=== PATIENT | female | born 1935 | race African-American/Black ===

== ENCOUNTER 2019-10-04 13:01 | Observation (INO) ==
[2019-10-04] MEDS ORDERED: ONDANSETRON 4 MG/2 ML VIAL IV STA (13:19)
[2019-10-04] MEDS ORDERED: ASPIRIN 325 MG TABLET PO STA (13:19)
[2019-10-04] MEDS ORDERED: ENOXAPARIN 100 MG/ML SYRINGE SUBCUT STA (13:19)
[2019-10-04] MEDS ORDERED: METOPROLOL TARTRATE 5 MG/5 ML VIAL IV STA ×2 (13:19→15:30)
[2019-10-04] MEDS ORDERED: MORPHINE 4 MG/1 ML VIAL IV STA ×2 (13:19→14:27)
[2019-10-04] MEDS ORDERED: NITROGLYCERIN 2% OINT 1 INCH/GM PACK TOP STA (13:19)
[2019-10-04 13:42] LABS: Basophils # 0.1 10*3/uL (0.0-0.2); Eosinophils # 0.3 10*3/uL (0.0-0.87); Eosinophils % 3.6 % (0.00-10.9); Hematocrit 34.8 VOL% (35.7-47.0); Hemoglobin 10.7 GM/DL (12.0-16.0); Immature Granulocytes % 0.9 %; Immature Granulocytes Absolute 0.08 #; Lymphocytes # 3.7 10*3/uL (1.4-4.0); Lymphocytes % 41.3 % (21.3-54.2); Mean Corpuscular HGB Conc 30.7 GM/DL (32-36); Mean Corpuscular Volume 89.2 FL (87-102); Mean Platelet Volume 10.6 FL (9.6-12.0); Monocytes % 5.6 % (1.7-12.7); Neutrophils % 47.6 % (38.7-73.9); Platelet Count 211 T/CUMM (130-400); Red Cell Distribution Width 17.1 % (9.3-17.3); White Blood Count 8.9 T/CUMM (4-12)
[2019-10-04 13:57] LABS: Alanine Aminotransferase 13 U/L (13-56); Albumin 2.9 G/DL (3.4-5.0); Alkaline Phosphatase 96 U/L (45-117); Aspartate Amino Transferase 15 U/L (0-37); Bilirubin,Total < 0.39 MG/DL (0.2-1.0); Blood Urea Nitrogen 22 MG/DL (7-18); Calcium 9.1 MG/DL (8.5-10.1); Estimated Glom Filtration Rate 47 ML/MIN; Glucose 70 MG/DL (74-106); Osmolality,Calculated 292.4 MOS/KG (273-304); Total Protein 7.3 G/DL (6.4-8.3)
[2019-10-04 14:01] LABS: INR 1.1; PT Patient Result 11.4 SECS (9.8-11.9)
[2019-10-04] MEDS ORDERED: ALUM/MAG/SIMETH/LIDO VISC 1:1 30 ML BOTTLE PO STA (15:42)
[2019-10-04] MEDS ORDERED: DEXTROSE 50% 25 GM/50 ML VIAL IV PRN (15:50)
[2019-10-04] MEDS ORDERED: LACTULOSE 20 GM/30 ML UDCUP PO PRN (15:50)
[2019-10-04] MEDS ORDERED: ACETAMINOPHEN 325 MG TABLET PO PRN (15:50)
[2019-10-04] MEDS ORDERED: CALCIUM CARBONATE CHEW 500 MG TABLET PO PRN (15:50)
[2019-10-04] MEDS ORDERED: GLUCAGON 1 MG VIAL IM PRN (15:50)
[2019-10-04] MEDS ORDERED: DOCUSATE SODIUM 100 MG CAPSULE PO PRN (15:50)
[2019-10-04] MEDS ORDERED: MORPHINE 4 MG/1 ML VIAL IV PRN (15:50)
[2019-10-04] MEDS ORDERED: ONDANSETRON 4 MG/2 ML VIAL IV PRN (15:50)
[2019-10-04] MEDS ORDERED: ALUM/MAG/SIMETH/LIDO VISC 1:1 30 ML BOTTLE PO PRN (15:59)
[2019-10-04] MEDS: INSULIN LISPRO 100 UNIT/ML SUBCUT SCH ×2 (20:37→20:38)
[2019-10-04] MEDS: ENOXAPARIN 40 MG/0.4 ML SYRINGE SUBCUT SCH (20:37)
[2019-10-04] MEDS: carvediloL 6.25 MG TABLET PO SCH (20:37)
[2019-10-04] MEDS: SODIUM CHLORIDE 0.9% 1,000 ML IV SCH (22:18)
[2019-10-05 05:31] LABS: Basophils # 0.1 10*3/uL (0.0-0.2); Eosinophils # 0.3 10*3/uL (0.0-0.87); Eosinophils % 4.5 % (0.00-10.9); Hematocrit 31.9 VOL% (35.7-47.0); Hemoglobin 9.7 GM/DL (12.0-16.0); Immature Granulocytes % 0.1 %; Immature Granulocytes Absolute 0.01 #; Lymphocytes # 2.9 10*3/uL (1.4-4.0); Lymphocytes % 41.8 % (21.3-54.2); Mean Corpuscular HGB Conc 30.4 GM/DL (32-36); Mean Corpuscular Volume 89.9 FL (87-102); Mean Platelet Volume 11.4 FL (9.6-12.0); Monocytes % 6.1 % (1.7-12.7); Neutrophils % 46.5 % (38.7-73.9); Platelet Count 184 T/CUMM (130-400); Red Blood Count 3.55 MC/CUMM (3.8-5.5); Red Cell Distribution Width 16.9 % (9.3-17.3); White Blood Count 6.9 T/CUMM (4-12)
[2019-10-05 06:08] LABS: Albumin 2.5 G/DL (3.4-5.0); Bilirubin,Total 0.4 MG/DL (0.2-1.0); Calcium 8.5 MG/DL (8.5-10.1); Osmolality,Calculated 293.4 MOS/KG (273-304); Risk Ratio 2.1; Thyroid Stimulating Hormone 0.229 uIU/ml (0.358-3.74); Total Protein 6.2 G/DL (6.4-8.3)
[2019-10-05] MEDS: INSULIN LISPRO 100 UNIT/ML SUBCUT SCH ×4 (08:21→20:51)
[2019-10-05] MEDS: SODIUM CHLORIDE 0.9% 1,000 ML IV SCH (08:28)
[2019-10-05] MEDS ORDERED: FUROSEMIDE 20 MG TABLET PO SCH (09:00)
[2019-10-05] MEDS: ROSUVASTATIN 20 MG TABLET PO SCH (09:00)
[2019-10-05 09:16] LABS: Free T4 (Free Thyroxine) 1.14 NG/DL (0.76-1.46)
[2019-10-05] MEDS: carvediloL 6.25 MG TABLET PO SCH ×2 (09:17→19:20)
[2019-10-05] MEDS: CYANOCOBALAMIN 500 MCG TABLET PO SCH (09:19)
[2019-10-05] MEDS: PANTOPRAZOLE 40 MG TABLET PO SCH (09:27)
[2019-10-05] MEDS: ISOSORBIDE MONONITRATE 30 MG TABLET PO SCH (09:27)
[2019-10-05] MEDS: CALCIUM (CITRATE)/VITAMIN D 200 MG-125 UNIT TABLET PO SCH (09:27)
[2019-10-05] MEDS: ASPIRIN EC 81 MG TABLET PO SCH (09:27)
[2019-10-05] MEDS: hydrALAZINE 20 MG/1 ML VIAL IV PRN ×2 (12:05→21:04)
[2019-10-05] MEDS: DEXTROSE 5% NACL 0.45% 1,000 ML IV SCH (12:11)
[2019-10-05] MEDS: OLMESARTAN 20 MG TABLET PO SCH (16:37)
[2019-10-05] MEDS: amLODIPine 10 MG TABLET PO SCH (16:37)
[2019-10-05] MEDS: ENOXAPARIN 40 MG/0.4 ML SYRINGE SUBCUT SCH (20:14)
[2019-10-06 05:50] LABS: Basophils # 0.1 10*3/uL (0.0-0.2); Basophils % 0.9 % (0.0-0.8); Eosinophils # 0.3 10*3/uL (0.0-0.87); Eosinophils % 4.2 % (0.00-10.9); Hematocrit 33.4 VOL% (35.7-47.0); Hemoglobin 10.2 GM/DL (12.0-16.0); Immature Granulocytes % 0.3 %; Immature Granulocytes Absolute 0.02 #; Lymphocytes # 3.1 10*3/uL (1.4-4.0); Lymphocytes % 39.2 % (21.3-54.2); Mean Corpuscular HGB Conc 30.5 GM/DL (32-36); Mean Corpuscular Volume 89.8 FL (87-102); Mean Platelet Volume 11.5 FL (9.6-12.0); Monocytes % 5.7 % (1.7-12.7); Neutrophils % 49.7 % (38.7-73.9); Platelet Count 214 T/CUMM (130-400); Red Blood Count 3.72 MC/CUMM (3.8-5.5); Red Cell Distribution Width 16.6 % (9.3-17.3); White Blood Count 7.9 T/CUMM (4-12)
[2019-10-06] MEDS: DEXTROSE 5% NACL 0.45% 1,000 ML IV SCH ×2 (05:50→19:28)
[2019-10-06 06:21] LABS: Alanine Aminotransferase 12 U/L (13-56); Albumin 2.7 G/DL (3.4-5.0); Alkaline Phosphatase 93 U/L (45-117); Aspartate Amino Transferase 10 U/L (0-37); Bilirubin,Total < 0.39 MG/DL (0.2-1.0); Blood Urea Nitrogen 23 MG/DL (7-18); Calcium 8.9 MG/DL (8.5-10.1); Estimated Glom Filtration Rate 44 ML/MIN; Glucose 128 MG/DL (74-106); Osmolality,Calculated 288.1 MOS/KG (273-304); Total Protein 6.8 G/DL (6.4-8.3)
[2019-10-06] MEDS: ROSUVASTATIN 20 MG TABLET PO SCH (10:12)
[2019-10-06] MEDS: CYANOCOBALAMIN 500 MCG TABLET PO SCH (10:12)
[2019-10-06] MEDS: ASPIRIN EC 81 MG TABLET PO SCH (10:12)
[2019-10-06] MEDS: PANTOPRAZOLE 40 MG TABLET PO SCH (10:13)
[2019-10-06] MEDS: CALCIUM (CITRATE)/VITAMIN D 200 MG-125 UNIT TABLET PO SCH (10:13)
[2019-10-06] MEDS: amLODIPine 10 MG TABLET PO SCH (10:13)
[2019-10-06] MEDS: carvediloL 6.25 MG TABLET PO SCH ×2 (10:13→18:12)
[2019-10-06] MEDS: OLMESARTAN 20 MG TABLET PO SCH (10:13)
[2019-10-06] MEDS: ISOSORBIDE MONONITRATE 30 MG TABLET PO SCH (10:13)
[2019-10-06] MEDS: INSULIN LISPRO 100 UNIT/ML SUBCUT SCH ×4 (10:14→20:30)
[2019-10-06] MEDS ORDERED: PANTOPRAZOLE 40 MG TABLET PO SCH (13:44)
[2019-10-06] MEDS: ENOXAPARIN 40 MG/0.4 ML SYRINGE SUBCUT SCH (20:28)
[2019-10-06] MEDS: GABAPENTIN 100 MG CAPSULE PO SCH (22:18)
[2019-10-07 05:39] LABS: Basophils # 0.1 10*3/uL (0.0-0.2); Basophils % 0.7 % (0.0-0.8); Eosinophils # 0.3 10*3/uL (0.0-0.87); Eosinophils % 4.9 % (0.00-10.9); Hematocrit 31.2 VOL% (35.7-47.0); Hemoglobin 9.5 GM/DL (12.0-16.0); Immature Granulocytes % 0.1 %; Immature Granulocytes Absolute 0.01 #; Lymphocytes # 2.9 10*3/uL (1.4-4.0); Lymphocytes % 41.8 % (21.3-54.2); Mean Corpuscular HGB Conc 30.4 GM/DL (32-36); Mean Corpuscular Volume 88.9 FL (87-102); Mean Platelet Volume 11.1 FL (9.6-12.0); Monocytes % 6.8 % (1.7-12.7); Neutrophils % 45.7 % (38.7-73.9); Platelet Count 190 T/CUMM (130-400); Red Blood Count 3.51 MC/CUMM (3.8-5.5); Red Cell Distribution Width 16.4 % (9.3-17.3)
[2019-10-07 07:12] LABS: Albumin 2.4 G/DL (3.4-5.0); Bilirubin,Total 0.8 MG/DL (0.2-1.0); Calcium 8.4 MG/DL (8.5-10.1); Osmolality,Calculated 288.4 MOS/KG (273-304); Total Protein 6.4 G/DL (6.4-8.3)
[2019-10-07] MEDS: DEXTROSE 5% NACL 0.45% 1,000 ML IV SCH (07:26)
[2019-10-07] MEDS: INSULIN LISPRO 100 UNIT/ML SUBCUT SCH ×2 (09:03→13:13)
[2019-10-07] MEDS: ASPIRIN EC 81 MG TABLET PO SCH (09:04)
[2019-10-07] MEDS: ISOSORBIDE MONONITRATE 30 MG TABLET PO SCH (09:05)
[2019-10-07] MEDS: GABAPENTIN 100 MG CAPSULE PO SCH (09:05)
[2019-10-07] MEDS: carvediloL 6.25 MG TABLET PO SCH (09:05)
[2019-10-07] MEDS: CYANOCOBALAMIN 500 MCG TABLET PO SCH (09:05)
[2019-10-07] MEDS: amLODIPine 10 MG TABLET PO SCH (09:05)
[2019-10-07] MEDS: ROSUVASTATIN 20 MG TABLET PO SCH (09:05)
[2019-10-07] MEDS: OLMESARTAN 20 MG TABLET PO SCH (09:06)
[2019-10-07] MEDS: CALCIUM (CITRATE)/VITAMIN D 200 MG-125 UNIT TABLET PO SCH (09:06)
[2019-10-07 13:20] VITALS: BP 155/63
[2019-10-08] MEDS ORDERED: ERGOCALCIFEROL 50,000 UNIT CAPSULE PO SCH (09:00)
== END 2019-10-07 13:35 | disposition home or self-care (01) ==
LOC: N.EDINP 13:01 → N.ED 13:01 → N.TELES 16:45
PROVIDERS: ADMIT Internal Medicine; ATTEND Internal Medicine

== ENCOUNTER 2020-06-17 08:15 | Observation (INO) ==
[2020-06-17 09:10] LABS: Bilirubin,Urine Negative (Negative); Blood, Urine Negative (Negative); Glucose,Urine (UA) Negative (Negative); Ketones,Urine Negative (Negative); Nitrite,Urine Negative (Negative); Protein,Urine 100 MG/DL; RBC,Urine 3 /HPF (0-4); Squamous Epithelial Cell,Urine Occasional /HPF (0-10); Urine Appearance CLEAR (Clear); Urine Color Colorless (Yellow); Urine Specific Gravity 1.006 (1.001-1.035); Urine Urobilinogen < 2.0 EU/DL (0.2-1.0)
[2020-06-17] MEDS ORDERED: SODIUM CHLORIDE 0.9% 500 ML IV STA (09:17)
[2020-06-17] MEDS ORDERED: ONDANSETRON 4 MG/2 ML VIAL IV STA (09:17)
[2020-06-17 09:24] LABS: Basophils # 0.1 10*3/uL (0.0-0.2); Basophils % 0.7 % (0.0-0.8); Eosinophils # 0.2 10*3/uL (0.0-0.87); Eosinophils % 3.3 % (0.00-10.9); Hemoglobin 11.4 GM/DL (12.0-16.0); Immature Granulocytes % 0.3 %; Immature Granulocytes Absolute 0.02 #; Lymphocytes # 2.5 10*3/uL (1.4-4.0); Lymphocytes % 34.1 % (21.3-54.2); Mean Corpuscular HGB Conc 30.8 GM/DL (32-36); Mean Corpuscular Volume 88.5 FL (87-102); Mean Platelet Volume 11.1 FL (9.6-12.0); Monocytes % 3.9 % (1.7-12.7); Neutrophils % 57.7 % (38.7-73.9); Platelet Count 226 T/CUMM (130-400); Red Blood Count 4.18 MC/CUMM (3.8-5.5); Red Cell Distribution Width 16.9 % (9.3-17.3); White Blood Count 7.2 T/CUMM (4-12)
[2020-06-17 09:45] LABS: Albumin 3.3 G/DL (3.4-5.0); Bilirubin,Total 0.4 MG/DL (0.2-1.0); Calcium 9.2 MG/DL (8.5-10.1); Osmolality,Calculated 280.3 MOS/KG (273-304); Potassium 4.1 MMOL/L (3.5-5.1); Total Protein 7.2 G/DL (6.4-8.2)
[2020-06-17] MEDS ORDERED: DEXTROSE 50% 25 GM/50 ML VIAL IV PRN (11:37)
[2020-06-17] MEDS ORDERED: DOCUSATE SODIUM 100 MG CAPSULE PO PRN (11:37)
[2020-06-17] MEDS ORDERED: GLUCAGON 1 MG VIAL IM PRN (11:37)
[2020-06-17] MEDS ORDERED: ACETAMINOPHEN 325 MG TABLET PO PRN (11:37)
[2020-06-17] MEDS ORDERED: hydrALAZINE 20 MG/1 ML VIAL IV PRN (14:06)
[2020-06-17] MEDS: PANTOPRAZOLE 40 MG TABLET PO SCH ×2 (14:15→21:01)
[2020-06-17] MEDS: SODIUM CHLORIDE 0.9% 1,000 ML IV SCH (14:15)
[2020-06-17] MEDS: ENOXAPARIN 40 MG/0.4 ML SYRINGE SUBCUT SCH (14:15)
[2020-06-17] MEDS ORDERED: ALUM/MAG/SIMETH/LIDO VISC 1:1 30 ML BOTTLE PO STA (14:29)
[2020-06-17] MEDS: INSULIN LISPRO 100 UNIT/ML SUBCUT SCH ×2 (17:46→20:25)
[2020-06-17] MEDS: ONDANSETRON 4 MG/2 ML VIAL IV PRN (18:13)
[2020-06-17] MEDS: ESCITALOPRAM 10 MG TABLET PO SCH (21:01)
[2020-06-17] MEDS: carvediloL 6.25 MG TABLET PO SCH (21:01)
[2020-06-17] MEDS: ROSUVASTATIN 20 MG TABLET PO SCH (21:01)
[2020-06-18] MEDS: ONDANSETRON 4 MG/2 ML VIAL IV PRN (03:09)
[2020-06-18] MEDS: SODIUM CHLORIDE 0.9% 1,000 ML IV SCH ×2 (04:28→20:33)
[2020-06-18 05:56] LABS: Calcium 8.7 MG/DL (8.5-10.1); Osmolality,Calculated 285.1 MOS/KG (273-304); VLDL CHOLESTEROL 18.4 MG/DL
[2020-06-18 07:54] LABS: Basophils # 0.1 10*3/uL (0.0-0.2); Basophils % 0.6 % (0.0-0.8); Eosinophils # 0.3 10*3/uL (0.0-0.87); Eosinophils % 4.4 % (0.00-10.9); Hematocrit 29.9 VOL% (35.7-47.0); Hemoglobin 9.5 GM/DL (12.0-16.0); Immature Granulocytes % 0.3 %; Immature Granulocytes Absolute 0.02 #; Lymphocytes # 2.7 10*3/uL (1.4-4.0); Lymphocytes % 35.1 % (21.3-54.2); Mean Corpuscular HGB Conc 31.8 GM/DL (32-36); Mean Corpuscular Volume 86.2 FL (87-102); Mean Platelet Volume 11.4 FL (9.6-12.0); Monocytes % 6.5 % (1.7-12.7); Neutrophils % 53.1 % (38.7-73.9); Platelet Count 215 T/CUMM (130-400); Red Blood Count 3.47 MC/CUMM (3.8-5.5); Red Cell Distribution Width 16.9 % (9.3-17.3); White Blood Count 7.7 T/CUMM (4-12)
[2020-06-18] MEDS: INSULIN LISPRO 100 UNIT/ML SUBCUT SCH ×4 (08:32→20:35)
[2020-06-18] MEDS: OLMESARTAN 20 MG TABLET PO SCH (09:17)
[2020-06-18] MEDS: CALCIUM (CITRATE)/VITAMIN D 200 MG-125 UNIT TABLET PO SCH (09:17)
[2020-06-18] MEDS: ISOSORBIDE MONONITRATE 30 MG TABLET PO SCH (09:18)
[2020-06-18] MEDS: ASPIRIN CHEW 81 MG TABLET PO SCH (09:18)
[2020-06-18] MEDS: carvediloL 6.25 MG TABLET PO SCH ×2 (09:18→20:34)
[2020-06-18] MEDS: PANTOPRAZOLE 40 MG TABLET PO SCH ×2 (09:18→20:35)
[2020-06-18] MEDS: ENOXAPARIN 40 MG/0.4 ML SYRINGE SUBCUT SCH (12:19)
[2020-06-18] MEDS: SUCRALFATE 1 GM TABLET PO SCH ×3 (12:19→20:36)
[2020-06-18] MEDS: ROSUVASTATIN 20 MG TABLET PO SCH (20:34)
[2020-06-18] MEDS: ESCITALOPRAM 10 MG TABLET PO SCH (20:35)
[2020-06-19] MEDS: ONDANSETRON 4 MG/2 ML VIAL IV PRN (06:20)
[2020-06-19 06:59] LABS: Basophils # 0.1 10*3/uL (0.0-0.2); Basophils % 0.9 % (0.0-0.8); Eosinophils # 0.4 10*3/uL (0.0-0.87); Eosinophils % 6.8 % (0.00-10.9); Hematocrit 31.5 VOL% (35.7-47.0); Hemoglobin 10.1 GM/DL (12.0-16.0); Immature Granulocytes % 0.4 %; Immature Granulocytes Absolute 0.02 #; Lymphocytes # 2.5 10*3/uL (1.4-4.0); Lymphocytes % 44.1 % (21.3-54.2); Mean Corpuscular HGB Conc 32.1 GM/DL (32-36); Mean Corpuscular Volume 87.5 FL (87-102); Mean Platelet Volume 11.4 FL (9.6-12.0); Monocytes % 6.7 % (1.7-12.7); Neutrophils % 41.1 % (38.7-73.9); Platelet Count 191 T/CUMM (130-400); Red Cell Distribution Width 17.1 % (9.3-17.3); White Blood Count 5.7 T/CUMM (4-12)
[2020-06-19 07:11] LABS: Folate 17.53 NG/ML (5.38-24.0); Vitamin B12 580 PG/ML (211-911)
[2020-06-19 07:12] LABS: Calcium 8.4 MG/DL (8.5-10.1); Ferritin 17.9 ng/ml (8-252); Osmolality,Calculated 284.1 MOS/KG (273-304); Potassium 3.9 MMOL/L (3.5-5.1)
[2020-06-19] MEDS: SODIUM CHLORIDE 0.9% 1,000 ML IV SCH ×4 (07:18→14:40)
[2020-06-19] MEDS: INSULIN LISPRO 100 UNIT/ML SUBCUT SCH ×4 (07:23→21:24)
[2020-06-19 07:40] LABS: Eosinophils 3 % (0-10); Hypochromasia 1+; Lymphocytes 36 % (20-55); Microcytosis 1+; Ovalocytes Slight; Platelet Estimate Adequate; Segmented Neutrophils 52 % (50-85); Total Cells Counted 100
[2020-06-19 08:15] LABS: Sedimentation Rate-Westergren 48 MM/HR (0-30)
[2020-06-19] MEDS: OLMESARTAN 20 MG TABLET PO SCH (09:03)
[2020-06-19] MEDS: ASPIRIN CHEW 81 MG TABLET PO SCH (09:03)
[2020-06-19] MEDS: SUCRALFATE 1 GM TABLET PO SCH ×4 (09:04→21:21)
[2020-06-19] MEDS: PANTOPRAZOLE 40 MG TABLET PO SCH ×2 (09:04→21:23)
[2020-06-19] MEDS: carvediloL 6.25 MG TABLET PO SCH ×2 (09:04→21:22)
[2020-06-19] MEDS: CALCIUM (CITRATE)/VITAMIN D 200 MG-125 UNIT TABLET PO SCH (09:04)
[2020-06-19] MEDS: ISOSORBIDE MONONITRATE 30 MG TABLET PO SCH (09:04)
[2020-06-19 09:08] LABS: Hemoglobin A1 (Alkaline) 97.9 % (96.5-98.5); Hemoglobin A2 (Alkaline) 2.1 % (1.5-3.5)
[2020-06-19] MEDS: ENOXAPARIN 40 MG/0.4 ML SYRINGE SUBCUT SCH (12:18)
[2020-06-19] MEDS: ROSUVASTATIN 20 MG TABLET PO SCH (21:21)
[2020-06-19] MEDS: ESCITALOPRAM 10 MG TABLET PO SCH (21:21)
[2020-06-20] MEDS: SODIUM CHLORIDE 0.9% 1,000 ML IV SCH ×3 (00:29→19:15)
[2020-06-20 06:06] LABS: Hematocrit 31.5 VOL% (35.7-47.0); Hemoglobin 9.8 GM/DL (12.0-16.0)
[2020-06-20 06:47] LABS: Calcium 8.5 MG/DL (8.5-10.1); Osmolality,Calculated 284.1 MOS/KG (273-304); Potassium 3.9 MMOL/L (3.5-5.1)
[2020-06-20] MEDS: OLMESARTAN 20 MG TABLET PO SCH (09:02)
[2020-06-20] MEDS: SUCRALFATE 1 GM TABLET PO SCH ×4 (09:02→21:00)
[2020-06-20] MEDS: ASPIRIN CHEW 81 MG TABLET PO SCH (09:02)
[2020-06-20] MEDS: carvediloL 6.25 MG TABLET PO SCH ×2 (09:03→20:50)
[2020-06-20] MEDS: CALCIUM (CITRATE)/VITAMIN D 200 MG-125 UNIT TABLET PO SCH (09:03)
[2020-06-20] MEDS: ISOSORBIDE MONONITRATE 30 MG TABLET PO SCH (09:03)
[2020-06-20] MEDS: PANTOPRAZOLE 40 MG TABLET PO SCH ×2 (09:03→20:49)
[2020-06-20] MEDS: INSULIN LISPRO 100 UNIT/ML SUBCUT SCH ×4 (09:03→20:50)
[2020-06-20] MEDS: ENOXAPARIN 40 MG/0.4 ML SYRINGE SUBCUT SCH (12:08)
[2020-06-20] MEDS: ROSUVASTATIN 20 MG TABLET PO SCH (20:49)
[2020-06-20] MEDS: ESCITALOPRAM 10 MG TABLET PO SCH (20:49)
[2020-06-21 05:37] LABS: Basophils # 0.1 10*3/uL (0.0-0.2); Eosinophils # 0.3 10*3/uL (0.0-0.87); Eosinophils % 5.5 % (0.00-10.9); Hematocrit 30.7 VOL% (35.7-47.0); Hemoglobin 9.2 GM/DL (12.0-16.0); Immature Granulocytes % 0.3 %; Immature Granulocytes Absolute 0.02 #; Lymphocytes # 2.9 10*3/uL (1.4-4.0); Lymphocytes % 46.8 % (21.3-54.2); Mean Corpuscular Volume 89.5 FL (87-102); Mean Platelet Volume 11.1 FL (9.6-12.0); Neutrophils % 39.4 % (38.7-73.9); Platelet Count 195 T/CUMM (130-400); Red Blood Count 3.43 MC/CUMM (3.8-5.5); Red Cell Distribution Width 16.9 % (9.3-17.3); White Blood Count 6.1 T/CUMM (4-12)
[2020-06-21 06:04] LABS: Calcium 8.5 MG/DL (8.5-10.1); Osmolality,Calculated 285.1 MOS/KG (273-304); Potassium 3.9 MMOL/L (3.5-5.1)
[2020-06-21] MEDS: SUCRALFATE 1 GM TABLET PO SCH ×2 (07:46→13:00)
[2020-06-21] MEDS: INSULIN LISPRO 100 UNIT/ML SUBCUT SCH ×2 (08:38→12:51)
[2020-06-21] MEDS: OLMESARTAN 20 MG TABLET PO SCH (09:14)
[2020-06-21] MEDS: ISOSORBIDE MONONITRATE 30 MG TABLET PO SCH (09:15)
[2020-06-21] MEDS: carvediloL 6.25 MG TABLET PO SCH (09:15)
[2020-06-21] MEDS: ASPIRIN CHEW 81 MG TABLET PO SCH (09:15)
[2020-06-21] MEDS: CALCIUM (CITRATE)/VITAMIN D 200 MG-125 UNIT TABLET PO SCH (09:15)
[2020-06-21] MEDS: PANTOPRAZOLE 40 MG TABLET PO SCH (09:15)
[2020-06-21 12:41] VITALS: BP 148/60
[2020-06-21] MEDS: ENOXAPARIN 40 MG/0.4 ML SYRINGE SUBCUT SCH ×2 (12:55→12:59)
== END 2020-06-21 14:10 | disposition home or self-care (01) ==
LOC: N.ED 08:15 → N.EDINP 08:15 → N.TELEN 15:05 → SUATTDRO 06-19 10:16
PROVIDERS: ADMIT Internal Medicine; ATTEND Internal Medicine

== ENCOUNTER 2020-11-02 10:04 | Observation (INO) ==
[2020-11-02] MEDS ORDERED: PANTOPRAZOLE 40 MG VIAL IV STA (10:31)
[2020-11-02 11:08] LABS: Basophils # 0.1 10*3/uL (0.0-0.2); Basophils % 0.5 % (0.0-0.8); Eosinophils # 0.2 10*3/uL (0.0-0.87); Eosinophils % 2.5 % (0.00-10.9); Hematocrit 24.1 VOL% (35.7-47.0); Hemoglobin 7.5 GM/DL (12.0-16.0); Immature Granulocytes % 0.4 %; Immature Granulocytes Absolute 0.04 #; Lymphocytes # 2.8 10*3/uL (1.4-4.0); Lymphocytes % 28.8 % (21.3-54.2); Mean Corpuscular HGB Conc 31.1 GM/DL (32-36); Mean Corpuscular Volume 87.6 FL (87-102); Mean Platelet Volume 11.5 FL (9.6-12.0); Monocytes % 4.4 % (1.7-12.7); Neutrophils % 63.4 % (38.7-73.9); Platelet Count 180 T/CUMM (130-400); Red Blood Count 2.75 MC/CUMM (3.8-5.5); Red Cell Distribution Width 15.7 % (9.3-17.3); White Blood Count 9.6 T/CUMM (4-12)
[2020-11-02 11:28] LABS: PT Patient Result 11.3 SECS (10.5-12.0)
[2020-11-02 11:34] LABS: Alanine Aminotransferase < 6 U/L (13-56); Albumin 2.8 G/DL (3.4-5.0); Alkaline Phosphatase 60 U/L (45-117); Aspartate Amino Transferase 10 U/L (0-37); Blood Urea Nitrogen 30 MG/DL (7-18); Calcium 8.4 MG/DL (8.5-10.1); Carbon Dioxide 28 MMOL/L (21-32); Estimated Glom Filtration Rate 37 ML/MIN; Glucose 216 MG/DL (74-106); Osmolality,Calculated 295.1 MOS/KG (273-304); Potassium 3.6 MMOL/L (3.5-5.1); Sodium 142 MMOL/L (136-145)
[2020-11-02] MEDS ORDERED: GLUCAGON 1 MG VIAL IM PRN (12:55)
[2020-11-02] MEDS ORDERED: ACETAMINOPHEN 325 MG TABLET PO PRN (12:55)
[2020-11-02] MEDS ORDERED: DEXTROSE 50% 25 GM/50 ML VIAL IV PRN (12:55)
[2020-11-02] MEDS ORDERED: ONDANSETRON 4 MG/2 ML VIAL IV PRN (13:34)
[2020-11-02] MEDS ORDERED: hydrALAZINE 20 MG/1 ML VIAL IV PRN (13:49)
[2020-11-02] MEDS ORDERED: SODIUM CHLORIDE 0.9% 1,000 ML IV PRN (13:51)
[2020-11-02] MEDS ORDERED: INFLUENZA VIRUS VACCINE 0.5 ML SYRINGE IM ONE (14:04)
[2020-11-02 14:34] LABS: Hematocrit 24.5 VOL% (35.7-47.0); Hemoglobin 7.5 GM/DL (12.0-16.0)
[2020-11-02] MEDS: SODIUM CHLORIDE 0.9% 1,000 ML IV SCH (15:32)
[2020-11-02] MEDS: INSULIN LISPRO 100 UNIT/ML SUBCUT SCH ×2 (15:45→23:16)
[2020-11-02 22:50] LABS: Hematocrit 24.1 VOL% (35.7-47.0); Hemoglobin 7.5 GM/DL (12.0-16.0)
[2020-11-02] MEDS: PANTOPRAZOLE 40 MG VIAL IV SCH (23:15)
[2020-11-03 01:07] LABS: Hematocrit 24.6 VOL% (35.7-47.0); Hemoglobin 7.7 GM/DL (12.0-16.0)
[2020-11-03 04:58] LABS: Basophils # 0.1 10*3/uL (0.0-0.2); Basophils % 0.7 % (0.0-0.8); Eosinophils # 0.3 10*3/uL (0.0-0.87); Eosinophils % 3.1 % (0.00-10.9); Hematocrit 23.5 VOL% (35.7-47.0); Hemoglobin 7.3 GM/DL (12.0-16.0); Immature Granulocytes % 0.2 %; Immature Granulocytes Absolute 0.02 #; Lymphocytes # 3.2 10*3/uL (1.4-4.0); Lymphocytes % 37.4 % (21.3-54.2); Mean Corpuscular HGB Conc 31.1 GM/DL (32-36); Mean Platelet Volume 11.2 FL (9.6-12.0); Monocytes % 5.8 % (1.7-12.7); Neutrophils % 52.8 % (38.7-73.9); Platelet Count 160 T/CUMM (130-400); Red Blood Count 2.67 MC/CUMM (3.8-5.5); Red Cell Distribution Width 15.3 % (9.3-17.3); White Blood Count 8.7 T/CUMM (4-12)
[2020-11-03 06:02] LABS: Calcium 8.2 MG/DL (8.5-10.1); Osmolality,Calculated 292.7 MOS/KG (273-304); Potassium 3.5 MMOL/L (3.5-5.1)
[2020-11-03] MEDS ORDERED: FUROSEMIDE 20 MG/2 ML VIAL IV PRN (06:49)
[2020-11-03] MEDS ORDERED: SODIUM CHLORIDE 0.9% 1,000 ML IV PRN (06:49)
[2020-11-03] MEDS: INSULIN LISPRO 100 UNIT/ML SUBCUT SCH ×4 (07:14→22:08)
[2020-11-03 07:35] LABS: Hematocrit 23.5 VOL% (35.7-47.0); Hemoglobin 7.4 GM/DL (12.0-16.0)
[2020-11-03] MEDS: PANTOPRAZOLE 40 MG VIAL IV SCH ×2 (09:55→22:08)
[2020-11-03] MEDS: POLYETHYLENE GLYCOL POWDER 17 GM PACK PO SCH ×3 (09:55→22:08)
[2020-11-03] MEDS: SODIUM CHLORIDE 0.9% 1,000 ML IV SCH ×2 (10:29→23:08)
[2020-11-04 01:16] LABS: Hematocrit 29.4 VOL% (35.7-47.0); Hemoglobin 9.2 GM/DL (12.0-16.0)
[2020-11-04 05:33] LABS: Basophils # 0.1 10*3/uL (0.0-0.2); Basophils % 0.6 % (0.0-0.8); Eosinophils # 0.5 10*3/uL (0.0-0.87); Eosinophils % 5.4 % (0.00-10.9); Hematocrit 30.3 VOL% (35.7-47.0); Hemoglobin 9.5 GM/DL (12.0-16.0); Immature Granulocytes % 0.2 %; Immature Granulocytes Absolute 0.02 #; Lymphocytes # 3.3 10*3/uL (1.4-4.0); Lymphocytes % 38.1 % (21.3-54.2); Mean Corpuscular HGB Conc 31.4 GM/DL (32-36); Mean Corpuscular Volume 87.6 FL (87-102); Mean Platelet Volume 11.2 FL (9.6-12.0); Monocytes % 5.3 % (1.7-12.7); Neutrophils % 50.4 % (38.7-73.9); Platelet Count 164 T/CUMM (130-400); Red Blood Count 3.46 MC/CUMM (3.8-5.5); Red Cell Distribution Width 15.1 % (9.3-17.3); White Blood Count 8.6 T/CUMM (4-12)
[2020-11-04 05:58] LABS: Calcium 8.2 MG/DL (8.5-10.1); Osmolality,Calculated 290.7 MOS/KG (273-304); Potassium 3.5 MMOL/L (3.5-5.1)
[2020-11-04] MEDS: SODIUM CHLORIDE 0.9% 1,000 ML IV SCH ×2 (06:45→22:16)
[2020-11-04] MEDS: INSULIN LISPRO 100 UNIT/ML SUBCUT SCH ×4 (07:01→22:15)
[2020-11-04] MEDS: POLYETHYLENE GLYCOL POWDER 17 GM PACK PO SCH ×3 (10:28→22:12)
[2020-11-04] MEDS: PANTOPRAZOLE 40 MG VIAL IV SCH ×2 (10:28→22:03)
[2020-11-04] MEDS: ASPIRIN EC 81 MG TABLET PO SCH (10:49)
[2020-11-04] MEDS: carvediloL 6.25 MG TABLET PO SCH ×2 (10:49→22:03)
[2020-11-04] MEDS: ISOSORBIDE MONONITRATE 30 MG TABLET PO SCH (10:49)
[2020-11-04] MEDS: ESCITALOPRAM 10 MG TABLET PO SCH (22:03)
[2020-11-04] MEDS: ROSUVASTATIN 20 MG TABLET PO SCH (22:03)
[2020-11-05 06:52] LABS: Calcium 8.3 MG/DL (8.5-10.1); Osmolality,Calculated 285.1 MOS/KG (273-304); Potassium 3.5 MMOL/L (3.5-5.1)
[2020-11-05 07:54] LABS: Hematocrit 28.2 VOL% (35.7-47.0); Hemoglobin 8.9 GM/DL (12.0-16.0)
[2020-11-05] MEDS: INSULIN LISPRO 100 UNIT/ML SUBCUT SCH ×4 (08:12→21:05)
[2020-11-05] MEDS ORDERED: INFLUENZA VIRUS VACCINE 0.5 ML SYRINGE IM ONE (09:45)
[2020-11-05] MEDS: ISOSORBIDE MONONITRATE 30 MG TABLET PO SCH (10:04)
[2020-11-05] MEDS: ASPIRIN EC 81 MG TABLET PO SCH (10:04)
[2020-11-05] MEDS: carvediloL 6.25 MG TABLET PO SCH ×2 (10:04→21:04)
[2020-11-05] MEDS: OLMESARTAN 20 MG TABLET PO SCH (14:13)
[2020-11-05] MEDS: POLYETHYLENE GLYCOL POWDER 17 GM PACK PO SCH ×3 (17:12→21:03)
[2020-11-05] MEDS: PANTOPRAZOLE 40 MG VIAL IV SCH ×2 (17:13→21:03)
[2020-11-05] MEDS: SODIUM CHLORIDE 0.9% 1,000 ML IV SCH (17:15)
[2020-11-05] MEDS: ROSUVASTATIN 20 MG TABLET PO SCH (21:04)
[2020-11-05] MEDS: ESCITALOPRAM 10 MG TABLET PO SCH (21:04)
[2020-11-06 05:14] LABS: Basophils % 0.5 % (0.0-0.8); Eosinophils # 0.4 10*3/uL (0.0-0.87); Eosinophils % 5.4 % (0.00-10.9); Hematocrit 29.1 VOL% (35.7-47.0); Hemoglobin 8.9 GM/DL (12.0-16.0); Immature Granulocytes % 0.5 %; Immature Granulocytes Absolute 0.04 #; Lymphocytes # 2.7 10*3/uL (1.4-4.0); Lymphocytes % 36.8 % (21.3-54.2); Mean Corpuscular HGB Conc 30.6 GM/DL (32-36); Mean Corpuscular Volume 89.3 FL (87-102); Mean Platelet Volume 11.3 FL (9.6-12.0); Monocytes % 6.9 % (1.7-12.7); Neutrophils % 49.9 % (38.7-73.9); Platelet Count 163 T/CUMM (130-400); Red Blood Count 3.26 MC/CUMM (3.8-5.5); Red Cell Distribution Width 14.9 % (9.3-17.3); White Blood Count 7.4 T/CUMM (4-12)
[2020-11-06] MEDS: carvediloL 6.25 MG TABLET PO SCH (10:40)
[2020-11-06] MEDS: ISOSORBIDE MONONITRATE 30 MG TABLET PO SCH (10:40)
[2020-11-06] MEDS: OLMESARTAN 20 MG TABLET PO SCH (10:41)
[2020-11-06] MEDS: ASPIRIN EC 81 MG TABLET PO SCH (10:41)
[2020-11-06 11:50] LABS: Bilirubin,Urine Negative (Negative); Blood, Urine Small mg/dL (Negative); Glucose,Urine (UA) Negative (Negative); Ketones,Urine Negative (Negative); Nitrite,Urine Negative (Negative); Protein,Urine 100 MG/DL; RBC,Urine 16 /HPF (0-4); Squamous Epithelial Cell,Urine Few /HPF (0-10); Urine Appearance CLOUDY (Clear); Urine Color Yellow (Yellow); Urine Specific Gravity 1.008 (1.001-1.035); Urine Urobilinogen < 2.0 EU/DL (0.2-1.0)
[2020-11-06 11:55] VITALS: BP 149/98
== END 2020-11-06 13:55 | disposition home health service (06) ==
LOC: EDBD → EDUNIT# → N.EDINP 10:04 → N.ED 10:04 → SUATTDRO 12:53 → N.3E 13:40
PROVIDERS: ADMIT Hospitalist; ATTEND Internal Medicine Geriatric Medicine